=== PATIENT | male | born 1955 | race Caucasian/White ===

== ENCOUNTER 2023-08-11 10:26 | Outpatient (CLI) | payer MEDICARE ==
[2023-08-11 15:35] LABS: ALBUMIN 4.3 g/dL (3.2-5.5); ALBUMIN/GLOBULIN RATIO 1.5 (1.0-2.2); ALKALINE PHOSPHATASE 74 IU/L (42-121); ALT ALANINE AMINOTRANSFERASE 28 IU/L (10-60); AST ASPARTATE AMINOTRANSFERASE 28 IU/L (10-42); BILIRUBIN,TOTAL 0.6 mg/dL (0.2-1.0); BUN - BLOOD UREA NITROGEN 22 mg/dL (6-20); CALCIUM 9.2 mg/dL (8.5-10.3); CARBON DIOXIDE - CO2 27 mmol/L (21-32); CHLORIDE 105 mmol/L (101-111); CHOL/HDL RATIO 2.9 (<5.0); CHOLESTEROL 183 mg/dL; CREATININE 0.9 mg/dL (0.6-1.3); GFR - MDRD 84 (>89); GLUCOSE 95 mg/dL (74-104); HDL CHOLESTEROL 63 mg/dL; LDL CHOLESTEROL,CALCULATED 52 mg/dL; LDL CHOLESTEROL,DIRECT 73 mg/dL (75-193); LDL/HDL RATIO 0.8 (<3.6); POTASSIUM 3.7 mmol/L (3.5-4.5); SODIUM 139 mmol/L (135-145); TOTAL PROTEIN 7.1 g/dL (6.4-8.9); TRIGLYCERIDES 341 mg/dL (48-352); URIC ACID 5.8 mg/dL (4.4-7.6); VLDL CHOLESTEROL 68 mg/dL
[2023-08-11 22:25] LABS: ESTIMATED AVERAGE GLUCOSE 117 mg/dL (70-100); HEMOGLOBIN A1c% 5.7 % (4.27-6.07)
== END 2023-08-11 10:27 | disposition home or self-care (01) ==
LOC: LAB.S 10:26
PROVIDERS: ATTEND Internal Medicine
DX: I10 Essential (primary) hypertension (principal); R73.02 Impaired glucose tolerance (oral); E78.5 Hyperlipidemia, unspecified; M1A.0720 Idiopathic chronic gout, left ankle and foot, without tophus (tophi)
CPT/HCPCS: 36415; 80053; 80061; 83036; 83721; 84550